=== PATIENT | male | born 1985 | race Caucasian/White ===

== ENCOUNTER 2024-08-21 10:28 | Emergency (ER) | payer OTHER ==
[2024-08-21 10:34] VITALS: RESP 18; TEMP 98.4
--- NOTE | 2024-08-21 10:48 | ERPHSYRPT ---
- History of Present Illness Source: patient Exam Limitations: no limitations Physician History: Patient has a history of bilateral carpal tunnel syndrome. It was worse on the right. He had a carpal tunnel release then and it seems to have improved. He started to get more severe symptoms in the left. He says it feels just like the carpal tunnel he had on the right hand and the one that he had earlier in the left hand. He has tingling in his 3 middle fingers. He does not have any weakness. There is no deformities or edema.Overuse makes it worse. Sleeping makes it worse. Quality: burning, other (Tingling and paresthesia) Severity of Pain-Max: moderate Severity of Pain-Current: mild Allergies/Adverse Reactions: No Known Drug Allergies Allergy (Unverified 08/21/24 10:33) Home Medications: armodafiniL [Nuvigil] 200 mg PO DAILY 08/21/24 [History] - Review of Systems Constitutional: No Symptoms Eyes: No Symptoms Musculoskeletal: Other (See HPI) Skin: No Symptoms Neurological: Other (See HPI) - Nursing Vital Signs Nursing Vital Signs: Initial Vital Signs Temperature 98.4 F 08/21/24 10:33 Pulse Rate 99 H 08/21/24 10:33 Respiratory Rate 18 08/21/24 10:33 Blood Pressure 148/92 08/21/24 10:33 O2 Sat by Pulse Oximetry 100 08/21/24 10:33 - Physical Exam General Appearance: no apparent distress Shoulder Exam: normal inspection, non-tender, no evidence of injury Elbow/Forearm Exam: normal inspection, non-tender, no evidence of injury Wrist Exam: normal inspection, pain (Phalen and Tinel's test was positive) Hand Exam: normal inspection Skin Exam: normal color, warm, dry SpO2: 100 - Progress Progress: unchanged Progress Note: Patient was stable throughout stay. He has pretty classic symptoms of carpal tunnel syndrome he does not have a wrist brace or splint. When to give him 1 of those here. I am also going to phone him in some [facility]. He is to ice the volar surface of the wrist and he will follow-up with either his chiropractor or a hand surgeon in [place]. 08/21/24 10:48 - Departure Departure Disposition: Home Clinical Impression: Carpal tunnel syndrome of left wrist Condition: Stable Critical Care Time: No Instructions: Carpal tunnel syndrome
[2024-08-21 11:35] VITALS: BP 120/78; PULSE 70; O2SAT 97
== END 2024-08-21 11:20 | disposition home or self-care (01) ==
LOC: ED 10:28
DX: G56.02 Carpal tunnel syndrome, left upper limb (principal); Z79.899 Other long term (current) drug therapy; Z72.0 Tobacco use
CPT/HCPCS: 99283